=== PATIENT | female | born 1945 | race Caucasian/White ===

== ENCOUNTER 2020-02-18 07:24 | Outpatient (CLI) | payer MEDICARE, OTHER, SELFPAY ==
--- NOTE | ~2020-02-18 | CT_ITS ---
EXAMINATION: CT chest abdomen pelvis w con DATE: 02/18/2020 08:14 INDICATION: Malignant carcinoid tumor of the jejunum TECHNIQUE: Transaxial computed tomographic images of the chest, abdomen, and pelvis were obtained aft er the administration of 100 cc of Omnipaque 350 intravenous contrast. The dose-length product (DLP) was 300.23 mGy-cm. Automated exposure control and iterative reconstruction technique were employed. COMPARISON: 06/25/2019, 12/09/2018 FINDINGS: CHEST CT: There is mild emphysema. A stable 4 mm groundglass nodule is present in the left lung apex. There is also a stable 3 mm nodule of the left lower lobe. No new pulmonary nodules are identified. There is n o pleural effusion or pneumothorax. Calcified coronary artery atherosclerosis is noted. No pathologic ally enlarged thoracic lymph nodes are identified. The heart size is normal. ABDOMEN/PELVIS CT: The gallbladder is surgically absent. Again seen are multiple stable hypoattenuating liver lesions me asuring up to 1.5 cm. No new liver lesion is identified. The spleen, pancreas, and adrenal glands are normal. Hypoattenuating lesions in the kidneys, measuring up to 8 mm on the right, are too small to characterize but likely represent cysts. There is calcified atherosclerosis of the aorta and many of the other arteries. A stable 2.8 x 1.8 cm partially calcified mass of the small bowel mesentery is se en. No new small bowel mesentery masses are identified. A chronic, stable 3.3 cm cystic lesion is not ed in the left adnexa. No pathologically enlarged abdominal or pelvic lymph nodes are identified. The re are multiple chronic soft tissue densities of the buttocks, likely reflecting injection sites. The re is stable grade 1 anterolisthesis of L4 on L5. IMPRESSION: 1. Stable partially calcified mass of the small bowel mesentery consistent with known carcinoid. 2. Multiple stable liver lesions, consistent with treated metastasis. Reviewed, dictated and finalized at location A.
[2020-02-18 08:11] LABS: Estimated Glomerular Filt Rate > 60
== END 2020-02-18 07:25 | disposition home or self-care (01) ==
LOC: ANHIMG 07:30
PROVIDERS: PCP Internal Medicine; Visit Provider Internal Medicine Medical Oncology
DX: C7A.011 Malignant carcinoid tumor of the jejunum (principal); K76.9 Liver disease, unspecified
CPT/HCPCS: 36415; 71260; 74177; Q9967

== ENCOUNTER 2020-05-26 07:49 | Outpatient (CLI) | payer MEDICARE, OTHER, SELFPAY ==
--- NOTE | ~2020-05-26 | XR_ITS ---
EXAMINATION: XR UGIAC w small bowel EXAM DATE: 05/26/2020 09:41 INDICATION: Episodic abdominal pain, reflux. TECHNIQUE: Mother Tester radiograph was acquired. Standard single and double contrast barium upper GI examina tion was performed followed by small bowel series. Spot images of the terminal ileum were acquired. The DAP for this procedure was 22 Gycm2. There is no prior study for comparison. FINDINGS: There is no esophageal stricture, diverticulum or mass identified. Gastroesophageal juncti on is normal in appearance. Reflux was not demonstrated during this examination. The stomach has a normal appearance without evidence of mass lesion, ulceration or filling defect. T here is normal rugal fold pattern. The duodenum and duodenal sweep are normal in appearance. Ileal and jejunal fold patterns are normal. There is no small bowel wall thickening or mass effect d isplacing small bowel. There are no intraluminal filling defects identified. There is no small blas l dilation. Terminal ileum is normal in appearance. Contrast reached the colon by one hours time. Some endovascular coils in the mid abdomen. IMPRESSION: Normal exam. Reviewed, dictated and finalized at location A. IMPRESSION: Normal exam.
== END 2020-05-26 07:50 | disposition home or self-care (01) ==
LOC: ANHIMG 07:53
PROVIDERS: PCP Internal Medicine; Visit Provider Internal Medicine Medical Oncology
DX: R10.9 Unspecified abdominal pain (principal); K21.9 Gastro-esophageal reflux disease without esophagitis
CPT/HCPCS: 74246; 74248

== ENCOUNTER 2020-08-25 08:29 | Outpatient (CLI) | payer MEDICARE, OTHER, SELFPAY ==
--- NOTE | ~2020-08-25 | CT_ITS ---
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 TECHNIQUE: Computed tomography (CT) of the chest, abdomen, and pelvis was performed with 100 cc Omnip aque 350 intravenous contrast. The dose-length product was 253.79 mGy-cm. Automated exposure control and iterative reconstruction technique were employed. COMPARISON: CT dated 02/18/2020 FINDINGS: CHEST CT: Heart size normal. No thoracic lymphadenopathy. No significant pleural or pericardial effusion. No en dobronchial lesions. There is lingular atelectasis. There is a 4 mm left lower lobe nodule, image 71, unchanged. Mild emphysema. No new pulmonary nodules or masses. ABDOMEN/PELVIS CT: There is atherosclerosis of the aorta and coronary arteries. Stable hypovascular lesions of the liver . Status post cholecystectomy with expected prominence of the bile ducts. The spleen, adrenal glands and pancreas are unremarkable. No solid renal mass is identified. Partially calcified soft tissue mass in the small bowel mesentery has increased in size compared with prior study measuring 3.1 x 2.4 cm compared with 2.2 x 1.9 cm on prior examination, suspicious for p rogression of malignancy. There is a 3.6 cm left adnexal cyst, likely ovarian. Moderate colonic fecal loading. No definite bowel obstruction. No free air. No new osteolytic or osteoblastic lesions to lundberg ggest malignancy. IMPRESSION: 1. Increased size of partially calcified abdominal mass involving the small bowel mesentery, suspicio us for progression of known carcinoid tumor. 2: No significant interval change to hypovascular lesions of the liver, likely treated metastases. 3: Stable 4 mm left lower lobe nodule, likely benign. Reviewed, dictated and finalized at location A. IMPRESSION: 1. Increased size of partially calcified abdominal mass involving the small bow el mesentery, suspicious for progression of known carcinoid tumor. 2: No significant interval change to hypovascular lesions of the liver, likely treated metastases. 3: Stable 4 mm left lower lobe nodule, likely benign.
[2020-08-25 09:31] LABS: Estimated Glomerular Filt Rate > 60
== END 2020-08-25 08:30 | disposition home or self-care (01) ==
LOC: ANHIMG 08:32
PROVIDERS: PCP Internal Medicine; Visit Provider Internal Medicine Medical Oncology
DX: C7A.011 Malignant carcinoid tumor of the jejunum (principal); C78.7 Secondary malignant neoplasm of liver and intrahepatic bile duct
CPT/HCPCS: 71260; 74177; Q9967

== ENCOUNTER 2021-02-19 16:35 | Emergency (ER) | payer MEDICARE, OTHER, SELFPAY ==
[2021-02-19 17:16] VITALS: BP 156/66; PULSE 79; RESP 18; TEMP 36.5; O2SAT 99
[2021-02-19 17:34] LABS: Basophils Percent Auto 0.8 % (0.2-1.2); Eosinophils Percent Auto 0.4 % (0-4.4); Hematocrit 34.8 % (37.0-47.0); Hemoglobin 10.6 g/dL (12.0-15.0); Lymphocytes Absolute Auto 0.44 K/mm3 (0.9-3.2); Lymphocytes Percent Auto 16.6 % (18.3-44.2); Mean Corpuscular HGB Conc 30.5 g/dl (32-36); Mean Corpuscular Hemoglobin 24.3 pg (26-34); Mean Corpuscular Volume 79.8 fl (80-100); Mean Platelet Volume 9.8 fl (7.4-10.4); Monocytes Absolute Auto 0.3 K/mm3 (0.1-0.6); Monocytes Percent Auto 12.8 % (2.6-8.5); Neutrophils Absolute Auto 1.8 K/mm3 (1.3-6.7); Neutrophils Percent Auto 69.4 % (45.5-73.1); Platelet Count Result 165 k/mm3 (150-375); Red Blood Count 4.36 M/mm3 (4.2-5.4); Red Cell Distribution Width 16.5 % (11.5-14.5); White Blood Count 2.7 K/mm3 (4.5-10.0)
[2021-02-19 17:43] LABS: INR 0.8; Prothrombin Time 12.1 Seconds (11.1-14.7)
[2021-02-19 17:44] LABS: Partial Thromboplastin Time 22.1 SECONDS (22.3-36.8)
[2021-02-19 17:45] LABS: Alanine Aminotransferase 17 U/L (4-35); Albumin Level 4.9 g/dL (3.5-5.1); Alkaline Phosphatase 133 U/L (38-126); Anion Gap 9 mmol/L (8-16); Aspartate Amino Transferase 42 U/L (14-36); Bilirubin,Total 0.5 mg/dL (0.2-1.3); Blood Urea Nitrogen 9 mg/dL (7-17); Calcium 9.4 mg/dL (8.4-10.2); Carbon Dioxide 32 mmol/L (22-30); Chloride 95 mmol/L (98-107); Estimated CRCL calculation 60 ml/min; Estimated Glomerular Filt Rate > 60; Glucose 128 mg/dL (65-105); Potassium 3.6 mmol/L (3.4-5.0); Sodium 136 mmol/L (137-145)
--- NOTE | 2021-02-19 18:39 | ED.GENADULT ---
HPI - General Adult General Chief complaint: GI Bleed Stated complaint: gi bleed Time Seen by Provider: 02/19/21 17:31 History of Present Illness HPI narrative: Patient is a 45-year-old female who presents ER with fatigue. She is concerned she may be anemic from a GI bleed. Patient has had some dark stools recently related to taking anti-inflammatories as well as an oral chemotherapeutic. She was recently at [facility] and had inpatient blood transfusion. Her oncologist Dr. Tinoco plans on giving her an iron infusion. She reports before that she was having dark stools but they are since returned to normal color. No diarrhea. No fevers or chills or sweats. Today she was trying to ambulate and became very fatigued. This prompted her to make sure that she is not persistently anemic and in need of additional transfusion. Related Data Allergies Allergy/AdvReac Type Severity Reaction Status Date / Time No Known Allergies Allergy Unknown Unverified 07/01/15 10:20 Review of Systems Review of Systems: All systems reviewed & are unremarkable except as noted in HPI and below Constitutional: Constitutional: Denies chills, Reports fatigue and Denies fever(s) ENT: Denies nasal congestion and Denies sore throat Cardiovascular: Cardiovascular: Denies chest pain and Denies radiating jaw, neck or arm pain Respiratory: Respiratory: Denies cough and Denies dyspnea Gastrointestinal: Gastrointestinal: Denies abdominal pain, Denies constipation, Denies heartburn, Denies diarrhea, Denies nausea and Denies vomiting PMFSH Past Medical History Medical History (Updated 02/19/21 @ 18:42 by Supa Jarquin MD) Carcinoid tumor Hypertension Surgical History Surgical History (Updated 02/19/21 @ 18:41 by Supa Jarquin MD) History of cholecystectomy History of right knee joint replacement Social History Social History (Updated 02/19/21 @ 18:41 by Supa Jarquin MD) Smoking status: Never smoker Exam Narrative: Exam Narrative: GENERAL: Well-appearing, thin, and in no acute distress. HEAD: Normocephalic, atraumatic. CHEST: Clear to auscultation. No respiratory distress. HEART: Regular rate and rhythm. Normal peripheral pulses. ABDOMEN: Soft, nontender, nondistended. EXTREMITIES: Normal range of motion. No edema. SKIN: Warm, dry, no rash. NEURO: Alert and oriented x3. PSYCH: Normal mood and affect. Course Course Emergency Course: Rectal deferred. Hemoglobin normal. No tachycardia. Discharge home. Patient has follow-up with her PCP on and will contact her oncologist on Saturday. Patient reports she did not get much sleep last night and had stayed up late and that may have contributed to her fatigue today. Vital Signs Vital signs: Vital Signs Temperature 97.7 F 02/19/21 17:16 Pulse Rate 79 02/19/21 17:16 Respiratory Rate 18 02/19/21 17:16 Blood Pressure 156/66 H 02/19/21 17:16 Pulse Oximetry 99 02/19/21 17:16 Temperature 97.7 F 02/19/21 17:16 Pulse Rate 79 02/19/21 17:16 Respiratory Rate 18 02/19/21 17:16 Blood Pressure 156/66 H 02/19/21 17:16 Pulse Oximetry 99 02/19/21 17:16 Medical Decision Making Vital Signs Vital Signs: Vital Signs Temperature 97.7 F 02/19/21 17:16 Pulse Rate 79 02/19/21 17:16 Respiratory Rate 18 02/19/21 17:16 Blood Pressure 156/66 H 02/19/21 17:16 Pulse Oximetry 99 02/19/21 17:16 Temperature 97.7 F 02/19/21 17:16 Pulse Rate 79 02/19/21 17:16 Respiratory Rate 18 02/19/21 17:16 Blood Pressure 156/66 H 02/19/21 17:16 Pulse Oximetry 99 02/19/21 17:16 Lab Data Result diagrams: 02/19/21 17:26 02/19/21 17:26 Labs: Lab Results 02/19/21 02/19/21 02/19/21 Range/Units 17:26 17:26 17:26 WBC 2.7 L (4.5-10.0) K/mm3 RBC 4.36 (4.2-5.4) M/mm3 Hgb 10.6 L (12.0-15.0) g/dL Hct 34.8 L (37.0-47.0) % MCV 79.8 L (80-100) fl MCH 24.3 L (26-34) pg
[2021-02-19 18:41] VITALS: BP 166/70; PULSE 76
[2021-02-19 18:42] VITALS: BP 138/79; BP 167/71; PULSE 74; PULSE 83
[2021-02-19 18:55] VITALS: BP 138/79; PULSE 83; RESP 17; O2SAT 100
== END 2021-02-19 19:01 | disposition home or self-care (01) ==
PROVIDERS: Emergency Provider Emergency Medicine; PCP Internal Medicine
DX: R53.83 Other fatigue (principal); C7A.00 Malignant carcinoid tumor of unspecified site; D64.9 Anemia, unspecified; Z96.651 Presence of right artificial knee joint; Z79.899 Other long term (current) drug therapy
CPT/HCPCS: 36415; 80053; 85025; 85610; 85730; 86850; 86900; 86901; 99283

== ENCOUNTER 2021-08-21 08:18 | Outpatient (CLI) | payer MEDICARE, OTHER, SELFPAY ==
--- NOTE | ~2021-08-21 | CT_ITS ---
EXAMINATION: CT chest abdomen pelvis w con DATE: 08/21/2021 08:55 INDICATION: Malignant carcinoid tumor of the jejunum TECHNIQUE: Transaxial computed tomographic images of the chest, abdomen, and pelvis were obtained aft er the administration of 100 cc of Omnipaque 350 intravenous contrast. The dose-length product (DLP) was 251.79 mGy-cm. Automated exposure control and iterative reconstruction technique were employed. COMPARISON: 08/25/2020 FINDINGS: CHEST CT: There is mild emphysema. A stable 3 mm nodule is present in the left lower lobe. There is also a stab le 4 mm groundglass nodule of the left upper lobe. There is no pleural effusion or pneumothorax. The lungs are free of focal airspace opacities. No pathologically enlarged thoracic lymph nodes are ident ified. The heart size is normal. Calcified coronary artery atherosclerosis is noted. ABDOMEN/PELVIS CT: There are multiple stable hypoattenuating and subtle hypervascular lesions of the liver measuring up to 1.5 cm. In addition, there are new hypoattenuating lesions measuring 11 mm in liver segment Gurpreet (i mage 108) and 7 mm in liver segment II (image 102). The gallbladder is surgically absent. There is mi ld enlargement of the common bile duct and central intrahepatic ducts which is likely due to post cho lecystectomy state. The spleen, pancreas, and adrenal glands are normal. Hypoattenuating lesions of t he kidneys measuring up to 8 mm on the right likely represent cysts. There is calcified atheroscleros is of the aorta and many of the other arteries. There is a 3.0 x 1.8 cm partially calcified mass of t he small bowel mesentery which is not significantly changed. A chronic 2.2 cm cystic lesion of the le ft adnexa is slightly decreased in size. There is no free intraperitoneal gas or evidence of bowel ob struction. No pathologically enlarged abdominal or pelvic lymph nodes are identified. IMPRESSION: 1. At least two new liver masses, consistent with metastatic disease. 2. Stable partially calcified mass of the small bowel mesentery, consistent with known carcinoid. Reviewed, dictated and finalized at location A. IMPRESSION: 1. At least two new liver masses, consistent with metastatic disease. 2. Stable partially calcified mass of the small bowel mesentery, consistent wit h known carcinoid.
[2021-08-21 08:50] LABS: Estimated Glomerular Filt Rate > 60
== END 2021-08-21 08:19 | disposition home or self-care (01) ==
LOC: ANHIMG 08:23
PROVIDERS: PCP Internal Medicine; Visit Provider Internal Medicine Medical Oncology
DX: C7A.098 Malignant carcinoid tumors of other sites (principal)
CPT/HCPCS: 71260; 74177; Q9967

== ENCOUNTER 2021-10-05 01:14 | Day surgery (SDC) | payer MEDICARE, OTHER, SELFPAY ==
[2021-10-02 11:12] VITALS: BMI 17.2
[2021-10-05] VITALS (7 sets, daily range): BP systolic 154–197; BP diastolic 70–92; PULSE 53–87; RESP 14–20; TEMP 36.4–37.1; O2SAT 99–100
--- NOTE | ~2021-10-05 | XR_ITS ---
EXAMINATION: XR ERCP EXAM DATE: 10/05/2021 12:46 INDICATION: Choledocholithiasis. TECHNIQUE: Fluoroscopy used during ERCP performed by Dr. Aravind Wang MD. Radiologist was not p resent for the imaging or procedure. Total fluoroscopic time of 207 seconds. The DAP for this proce dure was 0.75 mGym2. A total of 7 images sent to PACS from the exam. FINDINGS: There is ERCP scope, has been cannulated and injected with contrast. Large filling defect i dentified within the common bile duct on some of the images. There are endovascular coils overlying t he region. Correlate with procedure note. IMPRESSION: Fluoroscopy used during XR ERCP. Reviewed, dictated and finalized at location A. OR MECHANICAL DESIGNER
--- NOTE | 2021-10-05 10:01 | ECG_ITS ---
Measurements Intervals [place] Rate: 68 P: 80 [place]: 165 QRS: 49 QRSD: 94 T: 61 QT: 420 QTc: 450 Interpretive Statements SINUS RHYTHM POSSIBLE LEFT ATRIAL ENLARGEMENT INCOMPLETE RIGHT BUNDLE BRANCH BLOCK BASELINE ARTIFACT- I, II, III, AVR, AVL, AVF, V6 BORDERLINE ECG Electronically Signed On 10-05-2021 16:39:52 LEAD BASED PAINT TECHNICIAN by Romeo Denson D.O.
--- NOTE | 2021-10-05 11:05 | PM.HPGS ---
History of Present Illness History of Present Illness Consent: Risks, benefits, and alternatives have been discussed and questions answered. Patient agrees to proceed with procedure. I discussed with her and her family member possible complications including the fact that she could develop pancreatitis that this could be severe resulting in severe pain; may require hospitalization and could require surgery. Also rarely it could be fatal. Lesser complications of that could occur are bleeding or perforation. Chief complaint: cholelithiasis Narrative: Kary Walker is a 76 year old female Who has unfortunately metastatic carcinoid tumor to her mesentery. She has been having abdominal pain and recently was found to have elevation of liver enzymes. A recent CT scan was not remarkable except for showing some hepatic metastases. MRCP however showed stones in her bile duct. her upper limb phosphatase remains elevated. With symptoms that she has been having is at often after meal and recently almost every meal, she will develop pain across her back this may last for a few minutes to an hour. Sometimes taking Tylenol seems to minimize the pain. He has also associated these symptoms with having a bowel movement. She has lost weight over the past couple of years, partly because she may be afraid to eat due to the symptoms. Review of Systems Review of Systems: All systems reviewed & are unremarkable except as noted in HPI and below PMFSH Past Medical History Medical History Carcinoid tumor Hypertension Surgical History Surgical History History of cholecystectomy History of right knee joint replacement Social History Social History Smoking packs per day: 1.5 Smoking cigarettes per day: 30.0 Years smoked: 18 Smoking pack-years: 27.00 Smoking status: Former smoker Tobacco type: cigarettes Alcohol intake: never Substance use: never Substance use type: does not use Living arrangements: alone Spiritual care concerns: No Meds Home Medications and Allergies Home Medications Medication Instructions Recorded Confirmed Type amlodipine [Norvasc] 5 mg PO DAILY 10/02/21 10/02/21 History benazepril 10 mg PO DAILY 10/02/21 10/02/21 History dicyclomine 20 mg PO TID 10/02/21 10/02/21 History famotidine 20 mg PO BID 10/02/21 10/02/21 History Allergies Allergy/AdvReac Type Severity Reaction Status Date / Time metoclopramide Allergy Intermediate Other Verified 10/05/21 10:52 Vital Signs Vital Signs - 24 hr 10/05/21 10:53 Temperature 37.1 C Pulse Rate 87 Respiratory Rate 20 Blood Pressure 176/80 H Pulse Oximetry 100 Exam Const: General: comfortable and alert Nutritional Appearance: thin Orientation/consciousness: patient oriented x3 Resp: Auscultation: clear to auscultation bilaterally Cardio: Rhythm: regular rhythm GI: GI Palp: Yes Soft to palpation and No Tenderness to palpation present (GI) Neuro: General: patient oriented x3 Assessment and Plan Assessment and plan (1) Choledocholithiasis: Code(s): K80.50 - Calculus of bile duct without cholangitis or cholecystitis without obstruction Status: Acute Assessment and Plan: ERCP with possible sphincterotomy, stent placement, and stone extraction
[2021-10-05] MEDS: LACTATED RINGERS 1,000 ML 150 ML IV CONT ×2 (11:15→12:44)
--- NOTE | 2021-10-05 11:17 | SUR.PREOP ---
DR CORADO AND DR GRIFFITH BOTH AWARE OF EKG AND LAB RESULTS IN PREOP. NO NEW ORDERS
--- NOTE | 2021-10-05 11:24 | P.PNAN_ITS ---
Anes - Initial Pre Proc Eval Procedure: Operation Date: 10/05/21 12:15 Proposed Procedures p Endoscopic Retro Cholangiopancreatogram - Aravind Wang MD Date/Time: 10/05/21 11:24 Surgeon: Aravind Wang MD Pre Op Diagnosis: cholelithiasis Patient Data Age: 76 Gender: F Height: 1.63 m Weight: 44.4 kg Last Vital Signs Temp 37.1 C 10/05/21 10:53 Pulse 87 10/05/21 10:53 Resp 20 10/05/21 10:53 BP 176/80 H 10/05/21 10:53 Pulse Ox 100 10/05/21 10:53 Allergies Allergy/AdvReac Type Severity Reaction Status Date / Time metoclopramide Allergy Intermediate Other Verified 10/05/21 10:52 Home Medications Medication Instructions Recorded Confirmed Type amlodipine [Norvasc] 5 mg PO DAILY 10/02/21 10/02/21 History benazepril 10 mg PO DAILY 10/02/21 10/02/21 History dicyclomine 20 mg PO TID 10/02/21 10/02/21 History famotidine 20 mg PO BID 10/02/21 10/02/21 History Patient hx anesthesia problems: none Family hx anesthesia problems: none Results Review: All pre-operative results and documents have been reviewed as part of the pre-operative evaluation. [facility] Past Medical History Medical History Carcinoid tumor Hypertension Surgical History Surgical History History of cholecystectomy History of right knee joint replacement Social History Social History Smoking packs per day: 1.5 Smoking cigarettes per day: 30.0 Years smoked: 18 Smoking pack-years: 27.00 Smoking status: Former smoker Tobacco type: cigarettes Alcohol intake: never Substance use: never Substance use type: does not use Living arrangements: alone Spiritual care concerns: No Anes - Eval Final PreProcedure Day of Procedure 10/05/21 11:24 Patient weight: thin Heart: regular rate and rhythm Lungs: clear to auscultation Airway: Mallampati scale class II Neurological: alert and oriented Last oral intake: >/= 8 hours ASA classification: III Emergent: no Anesthetic plan: proceed Anesthesia type and monitoring: general ETT and standard monitoring Results Review: All pre-operative results and documents have been reviewed as part of the pre-operative evaluation. Informed Consent: The patient's anesthetic plan and its attendant risks and benefits were discussed with the patient/family/POA. Questions were solicited and answers provided to the satisfaction of the patient/family/POA.
[2021-10-05] MEDS: INDOMETHACIN 50 MG SUPP.RECT 100 MG RECTAL (11:48)
--- NOTE | 2021-10-05 13:46 | SUR.PHASEII ---
1344- Dr. Wang in room talking with patient and patient's daughter.
--- NOTE | 2021-10-05 13:49 | SUR.PHASEII ---
1323- Pt complaining of nausea. Pt's daughter requesting anti-nausea medication. 1325- Called Dr. Luna. Informed pt is nauseous and requesting meds. Already had Zofran (4mg). Received orders for 4mg Zofran and 4mg Decadron IVP. 1330- Brought medication to patient. Pt's daughter states that pt has issues with constipation with anti-nausea meds. No meds given at this time.
== END 2021-10-05 14:05 | disposition home or self-care (01) ==
PROVIDERS: PCP Internal Medicine; Visit Provider Internal Medicine Gastroenterology
PROC: (CPT 43260; principal; 2021-10-05 12:15)
DX: K80.50 Calculus of bile duct without cholangitis or cholecystitis without obstruction (principal); C78.7 Secondary malignant neoplasm of liver and intrahepatic bile duct; C78.6 Secondary malignant neoplasm of retroperitoneum and peritoneum; C7A.00 Malignant carcinoid tumor of unspecified site; Z90.49 Acquired absence of other specified parts of digestive tract; Z96.651 Presence of right artificial knee joint; Z87.891 Personal history of nicotine dependence; I10 Essential (primary) hypertension
CPT/HCPCS: 43262; 43264; 74329; 93005; A9270; J1200; J2405; J2704; J7120; Q9966

== ENCOUNTER 2021-11-26 12:38 | Emergency (ER) | payer MEDICARE, OTHER, SELFPAY ==
--- NOTE | ~2021-11-26 | CT_ITS ---
EXAMINATION: CT abdomen pelvis w con DATE: 11/26/2021 14:33 INDICATION: Abdominal pain TECHNIQUE: Computed tomography (CT) of the abdomen and pelvis was performed with 100 cc Omnipaque 350 intravenous contrast. Automated exposure control and iterative reconstruction technique were employe d. Exam dose: 177.76 mGy-cm total exam DLP. COMPARISON: 08/21/2021 CT chest abdomen pelvis. 08/25/2020 CT chest abdomen pelvis FINDINGS: The lung bases are clear of infiltrate or consolidation. No pericardial or pleural effusio n. Normal heart size. There are numerous left and right and caudate hepatic metastatic deposits measuring up to 2.4 cm. Pneumobilia, new since 08/21/2021. Common bile duct measures up to 10 mm. 8 mm right renal cyst. No other renal mass lesion. No urinary tract calculus or hydronephrosis. Prominent bilateral adnexal and gonadal veins. Up to 2.1 cm left adnexal cysts. Extensive abdominal aortic calcification, no aneurysm. Stable calcified mesenteric masses consistent with known carcinoid tumor. There are multiple osteosclerotic lesions since 08/25/2020, including 2.3 cm sclerotic lesion of the right ilium adjacent to the sacroiliac joint, 11 mm osteosclerotic lesion of the left iliac crest, 1. 6 cm osteolytic lesion of the right parasagittal S2-S3 sacral body, left L1 vertebral body 10 mm scle rotic lesion IMPRESSION: Extensive increased hepatic metastatic disease since 08/21/2021 Multiple osteosclerotic metastatic lesions Persistent partially calcified mesenteric masses consistent with history of carcinoid Status post cholecystectomy Bile duct dilatation, also present 08/21/2021; interval pneumobilia, likely secondary to cholecystect siria Reviewed, dictated and finalized at [facility] Reviewed, dictated and finalized at [facility] [employer] IMPRESSION: Extensive increased hepatic metastatic disease since 08/21/2021 Multiple osteosclerotic metastatic lesions Persistent partially calcified mesenteric masses consistent with history of car cinoid Status post cholecystectomy Bile duct dilatation, also present 08/21/2021; interval pneumobilia, likely sec ondary to cholecystectomy
[2021-11-26 12:41] VITALS: BP 184/83; PULSE 64; RESP 14; TEMP 36.3; O2SAT 99
--- NOTE | 2021-11-26 12:44 | ED.ABDPAIN ---
HPI - Abdominal Pain General Chief Complaint: Abdominal Pain Stated Complaint: BACK PAIN/NAUSEA Time Seen by Provider: 11/26/21 12:44 Source: patient and RN notes reviewed Limitations: no limitations History of Present Illness HPI narrative: Patient 76 years old white female presents abdominal pain unable to have a bowel movement associated with nausea started 4 AM this morning. Patient been having intermittent back pain sometimes upper and currently lower back pain. History of carcinoid tumor with liver and bone metastasis.. Patient scheduled for hospice 4 days Related Data Home Medications Medication Instructions Recorded Confirmed amlodipine [Norvasc] 5 mg PO DAILY 10/02/21 10/02/21 benazepril 10 mg PO DAILY 10/02/21 10/02/21 dicyclomine 20 mg PO TID 10/02/21 10/02/21 famotidine 20 mg PO BID 10/02/21 10/02/21 Allergies Allergy/AdvReac Type Severity Reaction Status Date / Time metoclopramide Allergy Intermediate Other Verified 10/05/21 10:52 Review of Systems Review of Systems: CONSTITUTIONAL: Denies fever, chills, or sweats. EYES: Denies visual changes, redness, or discharge. ENT: Denies rhinorrhea, congestion, sore throat, or otalgia. CARDIOVASCULAR: Denies chest pain, palpitations, or edema. RESPIRATORY: Denies cough or dyspnea. GASTROINTESTINAL: Denies abdominal pain, nausea, vomiting, or diarrhea. GENITOURINARY: Denies dysuria or hematuria. SKIN: Denies rash or itching. MUSCULOSKELETAL: Denies back pain, joint pain, or myalgia. NEUROLOGIC: Denies headache, numbness, or weakness. PSYCHIATRIC: Denies anxiety or depression. [facility] Past Medical History Medical History Carcinoid tumor Hypertension Surgical History Surgical History History of cholecystectomy History of right knee joint replacement Social History Social History Smoking packs per day: 1.5 Smoking cigarettes per day: 30.0 Years smoked: 18 Smoking pack-years: 27.00 Smoking status: Former smoker Tobacco type: cigarettes Alcohol intake: never Substance use: never Substance use type: does not use Spiritual care concerns: No Exam Narrative: General appearance: Well-developed, malnourished Skin: Normal color Head: Normocephalic, nontraumatic Eyes: Clear conjunctiva ENT: Oropharynx normal, ears normal, nose normal Neck: Supple, nontender Chest and respiratory: Airway patent, no respiratory distress, no accessory muscle use Heart: Regular rate/rhythm Abdomen: Soft, mild diffuse tenderness mainly at the flank area bilaterally, no organomegaly, quiet bowel sounds Vascular: Normal peripheral pulses, normal capillary refill. Musculoskeletal: Normal range of motion, nontender back Neurologic: Alert and oriented ?3, NP is normal as tested, no gross motor deficit Course Course Emergency Course: Stable Consultations Consultation #1: DR ORTIZ, oncologist, covering Dr. Tinoco. Patient can go home on oxygen:, Call Alejandrina in a.m. for evaluation Date: 11/26/21 Time: 16:37 Vital Signs Vital signs: Vital Signs Temperature 36.3 C L 11/26/21 12:41 Pulse Rate 64 11/26/21 12:41 Respiratory Rate 14 11/26/21 12:41 Blood Pressure 184/83 H 11/26/21 12:41 Pulse Oximetry 99 11/26/21 12:41 Temperature 36.3 C L 11/26/21 12:41 Pulse Rate 64 11/26/21 12:41 Respiratory Rate 14 11/26/21 12:41 Blood Pressure 184/83 H 11/26/21 12:41 Pulse Oximetry 99 11/26/21 12:41 MDM - Abdominal Pain MDM Narrative Medical decision making narrative: Abdominal pain, history of carcinoid
[2021-11-26 13:30] VITALS: BP 166/90; PULSE 88; RESP 16; TEMP 36.8; O2SAT 100
[2021-11-26] MEDS: SODIUM CHLORIDE 0.9% IV 1,000 ML 999 ML IV CONT (13:34)
[2021-11-26 14:10] LABS: Alanine Aminotransferase 28 U/L (4-35); Albumin Level 4.5 g/dL (3.5-5.1); Alkaline Phosphatase 156 U/L (38-126); Anion Gap 6 mmol/L (8-16); Aspartate Amino Transferase 41 U/L (14-36); Bilirubin,Total 0.7 mg/dL (0.2-1.3); Blood Urea Nitrogen 11 mg/dL (7-17); Calcium 9.3 mg/dL (8.4-10.2); Carbon Dioxide 28 mmol/L (22-30); Chloride 100 mmol/L (98-107); Estimated CRCL calculation 61 ml/min; Estimated Glomerular Filt Rate > 60; Glucose 154 mg/dL (65-110); Lipase 65 U/L (23-300); Potassium 4.1 mmol/L (3.4-5.0); Sodium 134 mmol/L (137-145)
[2021-11-26 14:30] VITALS: BP 158/90; PULSE 88; RESP 16; O2SAT 98
[2021-11-26 15:22] LABS: Basophils Percent Auto 0.6 % (0.2-1.2); Hematocrit 44.4 % (37.0-47.0); Hemoglobin 14.7 g/dL (12.0-15.0); Immature Granulocyte Absolute 0.01 K/mm3 (0.00-0.031); Immature Granulocyte Percent A 0.2 % (0-0.5); Immature Platelet Fraction Pct 8.3 % (0.9-11.2); Lymphocytes Absolute Auto 0.58 K/mm3 (0.9-3.2); Lymphocytes Percent Auto 10.7 % (18.3-44.2); Mean Corpuscular HGB Conc 33.1 g/dl (32-36); Mean Corpuscular Hemoglobin 33.9 pg (26-34); Mean Corpuscular Volume 102.3 fl (80-100); Mean Platelet Volume 11.2 fl (7.4-10.4); Monocytes Absolute Auto 0.2 K/mm3 (0.1-0.6); Neutrophils Absolute Auto 4.6 K/mm3 (1.3-6.7); Neutrophils Percent Auto 84.5 % (45.5-73.1); Platelet Count Result 128 k/mm3 (150-375); Red Blood Count 4.34 M/mm3 (4.2-5.4); Red Cell Distribution Width 13.3 % (11.5-14.5); White Blood Count 5.4 K/mm3 (4.5-10.0)
[2021-11-26 15:23] LABS: Add Urine Microscopic? NO; Appearance Urine Clear (Clear); Bilirubin Urine Negative (Negative); Blood Urine Negative (Negative); Color Urine Colorless (Yellow); Glucose Urine UA Negative (Negative); Ketones Urine Negative (Negative); Leukocyte Esterase Ur Negative LEU/UL (Negative); Nitrate Urine Negative (Negative); Protein Urine Negative (Negative); Specific Grav Ur 1.019 (1.001-1.035); Urobilinogen Urine Negative mg/dL (<2.0)
[2021-11-26] MEDS: ONDANSETRON INJ 4 MG/2 ML VIAL IV PUSH (15:28)
[2021-11-26] MEDS: HYDROmorphone HCL INJ (*CRX) 1 MG/ML SYR 0.5 MG IV PUSH (15:28)
[2021-11-26 15:30] VITALS: BP 168/90; PULSE 90; RESP 14; O2SAT 98
[2021-11-26 16:30] VITALS: BP 155/83; PULSE 71; RESP 16; TEMP 36.6; O2SAT 97
== END 2021-11-26 17:12 | disposition home or self-care (01) ==
PROVIDERS: Emergency Provider Emergency Medicine; PCP Internal Medicine
DX: C7A.098 Malignant carcinoid tumors of other sites (principal); C7B.02 Secondary carcinoid tumors of liver; C7B.03 Secondary carcinoid tumors of bone; I10 Essential (primary) hypertension; Z87.891 Personal history of nicotine dependence
CPT/HCPCS: 36415; 74177; 80053; 81003; 83690; 85025; 85055; 96361; 96374; 96375; 99284; J1170; J2405; J7030; Q9967